=== PATIENT | female | born 1980 | race Asian ===

== ENCOUNTER 2021-01-19 12:21 | Outpatient (CLI) | payer OTHER | END 2021-01-19 22:37 | disposition home or self-care (01) | LOC: LAB 12:21 | PROVIDERS: ATTEND Family Medicine | DX: R50.9 Fever, unspecified (principal); J02.9 Acute pharyngitis, unspecified; J34.89 Other specified disorders of nose and nasal sinuses; Z11.52 Encounter for screening for COVID-19 | CPT/HCPCS: 87635; G2023; U0003 ==